=== PATIENT | male | born 1985 | race African-American/Black ===

== ENCOUNTER 2022-06-22 17:39 | Emergency (ER) | payer OTHER, SELFPAY | END 2022-06-22 18:15 | disposition home or self-care (01) | LOC: NAV ERS 17:39 | DX: Z02.79 Encounter for issue of other medical certificate (principal); I10 Essential (primary) hypertension | CPT/HCPCS: 99283 ==

== ENCOUNTER 2022-10-19 17:19 | Emergency (ER) | payer OTHER, SELFPAY ==
[2022-10-19] MEDS ORDERED: Acetaminophen 500 MG TAB ONE (17:33)
[2022-10-19] MEDS ORDERED: Sodium Chloride 0.9% 1,000 ML ONE (17:33)
[2022-10-19] MEDS ORDERED: Lidocaine 1% (PF) 30 ML VIAL ONE (17:44)
[2022-10-19] MEDS ORDERED: Boostrix 0.5 ML (Tdap) VIAL (>/=7 yrs of age) ONE (17:44)
[2022-10-19] MEDS ORDERED: Ibuprofen 800 MG TAB ONE (17:54)
[2022-10-19] MEDS ORDERED: Bacitracin 1 PK ONE (18:50)
[2022-10-19] MEDS ORDERED: Amoxicillin/Potassium Clav 875 MG TAB ONE (18:50)
== END 2022-10-19 19:00 | disposition home or self-care (01) ==
LOC: NAV ERS 17:19
DX: S91.011A Laceration without foreign body, right ankle, initial encounter (principal); W54.0XXA Bitten by dog, initial encounter; Z23 Encounter for immunization
CPT/HCPCS: 12004; 90471; 90715; J2001; J7050

== ENCOUNTER 2023-07-27 03:55 | Emergency (ER) | payer SELFPAY ==
[2023-07-27] MEDS ORDERED: Lisinopril 5 MG TAB ONE (04:31)
== END 2023-07-27 04:45 | disposition home or self-care (01) ==
LOC: NAV ERS 03:55
DX: R03.0 Elevated blood-pressure reading, without diagnosis of hypertension (principal); F17.290 Nicotine dependence, other tobacco product, uncomplicated
CPT/HCPCS: 99283